=== PATIENT | female | born 1945 | race Caucasian/White ===

== ENCOUNTER → 2020-12-22 13:39 | Outpatient (CLI) | payer MEDICARE, SELFPAY ==
--- NOTE | ~2020-12-22 | XR_ITS ---
EXAMINATION: XR chest 2V DATE: 12/22/2020 14:15 INDICATION: Shortness of breath. TECHNIQUE: Frontal and lateral views of the chest were obtained. COMPARISON: Chest 2 views 04/08/2015 FINDINGS: There is mild atelectasis in left lower lung zone. No pleural effusion or pneumothorax. The heart size is normal. Surgical clips are likely from hiatal hernia repair. There are changes of ante rior fusion procedure in cervical spine. IMPRESSION: 1. Mild atelectasis in left lower lung zone. Reviewed, dictated and finalized at location A. 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
== END ==
PROVIDERS: PCP Family Medicine; Visit Provider Family Medicine
DX: R06.02 Shortness of breath (principal); R91.8 Other nonspecific abnormal finding of lung field
CPT/HCPCS: 71046

== ENCOUNTER 2020-12-26 13:10 | Outpatient (CLI) | payer MEDICARE, SELFPAY ==
--- NOTE | 2020-12-29 13:14 | P.PCNPFT_ITS ---
PFT Interpretation This is a pulmonary function test with pre and post-bronchodilator spirometry, plethysmography and diffusing capacity. The test was performed and results interpreted in accordance with the 2019 and 2005 ATS/ERS Task Force guidelines respectively using the Global Lung Function Initiative-2012 reference equations. Findings: Spirometry: The contour of the inspiratory and expiratory flow tracing are normal. The pre bronchodilator FVC is 2.02 L, 84% predicted. The pre bronchodilator FEV1 is 1.48 L, 79% predicted. The FEV1: FVC ratio 73%. The pos t bronchodilator FVC is 2.17 L, representing a 7% increase. The post bronchodilator FEV1 is 1.48 L, representing no change. Plethysmography: The total lung capacity is 4.04 L, 88% predicted. The functional residual capacity is 2.27 L, 86% predicted. The residual volume is 1.8 L, 88% predicted. Diffusing capacity: The absolute diffusion capacity is 15.6, 84% predicted. The diffusing capacity corrected for alveolar volume is 5.18, 119% predicted. Impression: The spirometry is normal without evidence of an obstructive abnormality. There is no significant improvement after inhaling a single dose of albuterol. The lung volumes are normal. The diffusing capacity is normal. There are no prior studies for comparison
== END 2020-12-26 13:11 | disposition home or self-care (01) ==
PROVIDERS: PCP Family Medicine; Visit Provider Family Medicine
DX: R06.02 Shortness of breath (principal); R94.2 Abnormal results of pulmonary function studies
CPT/HCPCS: 94060; 94726; 94729

== ENCOUNTER → 2021-01-02 17:43 | Outpatient (CLI) | payer MEDICARE, SELFPAY ==
--- NOTE | ~2021-01-02 | MM_ITS ---
EXAMINATION: MM screening [facility] BI w charlie HISTORY: Screening mammogram TECHNIQUE: Craniocaudal and mediolateral oblique 3-D tomosynthesis images were obtained and synthetic 2-D images were generated. CAD analysis was submitted and interpreted. COMPARISON: No prior mammogram is available for comparison at this institution. BREAST PARENCHYMAL COMPOSITION: There are scattered areas of fibroglandular density. FINDINGS: There is no evidence of suspicious mass, calcification, or architectural distortion to sugg est malignancy in either breast. IMPRESSION: 1. No mammographic evidence of malignancy. 2. Recommend routine screening mammography in one year. BI-RADS Category 1: Negative Reviewed, dictated and finalized at location A. 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
== END ==
PROVIDERS: Visit Provider Family Medicine
DX: Z12.31 Encounter for screening mammogram for malignant neoplasm of breast (principal)
CPT/HCPCS: 77063; 77067

== ENCOUNTER 2023-09-22 15:38 | Emergency (ER) | payer MEDICARE, SELFPAY ==
--- NOTE | ~2023-09-22 | CT_ITS ---
EXAMINATION: CT cervical spine wo con DATE: 09/22/2023 16:42 INDICATION: Fall. TECHNIQUE: Computed tomography (CT) of the cervical spine was performed without intravenous contrast. Automated exposure control and iterative reconstruction technique were employed. Exam dose: 349.85 mGy-cm total exam DLP. COMPARISON: None FINDINGS: Status post anterior and interbody spinal surgical fusion at C3-C7. Moderate degenerative disc disease at C2-3, moderately severe degenerative disc disease at C3-4 and s evere degenerative disc disease at C7-T1, T1 to, T2-3. There is prominent degenerative change at the apophyseal joints throughout the cervical spine as well . No fracture or dislocation or locked facet or prevertebral soft tissue swelling is detected. IMPRESSION: No cervical spine fracture or dislocation is detected Status post anterior and interbody surgical fusion from C3 through C7 Prominent cervical and upper thoracic spondylosis Reviewed, dictated and finalized at [facility]. Reviewed, dictated and finalized at location A. 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
--- NOTE | ~2023-09-22 | CT_ITS ---
EXAMINATION: CT brain wo con DATE: 09/22/2023 16:42 INDICATION: Head injury. Fall. Slipped on driveway. Laceration right eyebrow. TECHNIQUE: Computed tomography (CT) of the head was performed without intravenous contrast. The mA wa s adjusted according to patient size. Iterative reconstruction technique was employed. Exam dose: 60 5.33 mGy-cm total exam DLP. COMPARISON: None FINDINGS: No intracranial mass lesion or hemorrhage or cerebrovascular accident. No midline shift or mass effect effect. Bilateral vertebral artery and carotid siphon internal carotid artery calcificati ons. There is nonspecific diminished attenuation cerebral white matter, likely due to chronic small v essel ischemic changes. Normal ventricular size. No subdural or epidural hematoma is detected. There is suggestion of probable old left orbital blowout fracture. No skull fracture or bone destruct ion is detected. The mastoid air cells and included paranasal sinuses are unremarkable. IMPRESSION: Cerebral atherosclerosis and chronic small vessel ischemic changes of the cerebral white matter No acute intracranial finding or skull fracture Reviewed, dictated and finalized at [facility]. Reviewed, dictated and finalized at location A. 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
[2023-09-22 15:43] VITALS: BP 129/105; PULSE 85; RESP 16; TEMP 36.6
--- NOTE | 2023-09-22 16:32 | ED.WOUNDLAC ---
HPI - Wound/Laceration General Chief Complaint: Wound/Laceration Stated Complaint: head laceration Time Seen by Provider: 09/22/23 15:50 History of Present Illness HPI narrative: Patient is a 78-year-old female presenting after a fall. States that she was on a walk when she tripped on her right foot falling forward and striking her forehead on a step. Sustained a large laceration to her right eyebrow. Does not think that she lost consciousness. No nausea or vomiting. No numbness or weakness. States that she has had a tetanus shot within the last couple of years as she sustained a laceration at that time. No neck or back pain. No further complaints. Related Data Allergies Allergy/AdvReac Type Severity Reaction Status Date / Time codeine Allergy Unknown Unknown Verified 03/12/21 10:26 meperidine Allergy Unknown Unknown Verified 03/12/21 10:26 Sulfa (Sulfonamide Allergy Unknown Unknown Verified 03/12/21 10:26 Antibiotics) escitalopram AdvReac didn't work Verified 03/12/21 10:26 Review of Systems Review of Systems: All systems reviewed & are unremarkable except as noted in HPI and below PMFSH Past Medical History Medical History Adjustment disorder with depressed mood Bereavement Morbid obesity with BMI of 50.0-59.9, adult PUD (peptic ulcer disease) Tension headache Surgical History Surgical History S/P repair of paraesophageal hernia Family History Family History Mother Diabetes mellitus Family history of cardiovascular disease Family history of malignant neoplasm Social History Social History Alcohol intake: current Exam Narrative: GENERAL: In no acute distress, pleasant cooperative HEAD: Normocephalic, 4 cm laceration to right eyebrow EYES: PERRLA and EOMI. ENT: grossly unremarkable NECK: Supple. no midline tenderness CHEST: No respiratory distress. HEART: Regular rate and rhythm ABDOMEN: nondistended EXTREMITIES: Normal range of motion. No edema. SKIN: Warm, dry, as above NEURO: No focal deficits. Alert and oriented x3. PSYCH: Normal mood and affect. Course Vital Signs Vital signs: Vital Signs Temperature 97.8 F 09/22/23 15:43 Pulse Rate 85 09/22/23 15:43 Respiratory Rate 16 09/22/23 15:43 Blood Pressure 129/105 H 09/22/23 15:43 Oxygen Delivery Room Air 09/22/23 15:43 Temperature 97.8 F 09/22/23 15:43 Pulse Rate 77 09/22/23 18:53 Respiratory Rate 18 09/22/23 18:53 Blood Pressure 114/84 09/22/23 18:53 Pulse Oximetry 96 09/22/23 18:53 Oxygen Delivery Room Air 09/22/23 15:43 Procedures Laceration Laceration 1: Date: 09/22/23 Time: 18:32 Site: face Side (If applicable): right Size (cm): 4 Description: linear Depth: simple, single layer and involves muscle layer Local Anesthetic: lidocaine 1% Pre-repair: wound explored, irrigated and irrigated extensively ====== Skin Level ====== Skin layer closed with: nylon Size (cm): 4-0 Number of sutures: 9 Technique: simple, interrupted ====== Subcutaneous Layer ====== Subcutaneous layer closed with: chromic gut Size: 5-0 Number of sutures: 3 Technique: simple, interrupted ====== Muscle Layer ====== ====== Tendon Layer ====== MDM - Wound/Laceration MDM Narrative Medical decision making narrative: 78-year-old female presenting with a forehead laceration after mechanical fall. Vitals are stable. Exam remarkable for the above. CT brain and C-spine negative for acute abnormalities. Laceration repaired at bedside. Procedure note below. She did require multiple layers of repair. Discussed appropriate supportive care. A
--- NOTE | 2023-09-22 17:07 | PC.NURSE ---
Patient found walking in the hallway looking for bathroom. This RN went to assist patient to the restroom and patient refused to let this RN touch her to help her get to the bathroom safely. Patient's family outside bathroom door waiting for patient to ensure she gets back to her room safely. Patient states when is someone going to help me? and this RN informed patient that we were waiting to get her CT scan results back and the doctor would be in as soon as she could to get her wound stitched up.
[2023-09-22] MEDS: LIDOCAINE HCL 1% LOCAL INJ 10 ML VIAL INFILTRATE (17:51)
--- NOTE | 2023-09-22 18:11 | PC.NURSE ---
Provider at bedside for laceration repair
--- NOTE | 2023-09-22 18:50 | PC.NURSE ---
Patient complains of rib pain when sitting up. Provider made aware and no new orders at this time. Patient vital signs are stable and WNL.
[2023-09-22 18:53] VITALS: BP 114/84; PULSE 77; RESP 18; O2SAT 96
== END 2023-09-22 18:57 | disposition home or self-care (01) ==
PROVIDERS: Emergency Provider Emergency Medicine; PCP Physician Assistant Medical
DX: S01.111A Laceration without foreign body of right eyelid and periocular area, initial encounter (principal); Z87.11 Personal history of peptic ulcer disease; I67.2 Cerebral atherosclerosis; Z98.1 Arthrodesis status; M47.816 Spondylosis without myelopathy or radiculopathy, lumbar region; M47.814 Spondylosis without myelopathy or radiculopathy, thoracic region; W01.0XXA Fall on same level from slipping, tripping and stumbling without subsequent striking against object, initial encounter
CPT/HCPCS: 12052; 70450; 72125; 99284